=== PATIENT | female | born 1985 | race Caucasian/White ===

== ENCOUNTER 2016-10-23 07:09 | Emergency (ER) | payer BC ==
--- NOTE | 2016-10-23 07:33 | UC ---
Throat Pain/Nasal Deandre HPI - HPI Summary HPI Summary: SORE THROAT X 2 DAYS, + CHILLS, BODY ACHES, NO RUNNY NOSE , OR CONGESTION, NO COUGH , ? FEVER - History of Current Complaint Chief Complaint: UCRespiratory Stated Complaint: SORE THROAT/FEVER/ACHES Time Seen by Provider: 10/23/16 07:25 Hx Obtained From: Patient Hx Last Menstrual Period: 09/16/17 Onset/Duration: Gradual Onset, Lasting Days - 2, Still Present Severity: Moderate Cough: None Associated Signs & Symptoms: Positive: Fever. Negative: Drooling, Sinus Discomfort, Nasal Discharge, Vomiting, Rash - Allergies/Home Medications Allergies/Adverse Reactions: Allergies Allergy/AdvReac Type Severity Reaction Status Date / Time No Known Allergies Allergy Verified 10/23/16 07:21 Home Medications: Home Medications Ibuprofen TAB* [Motrin TAB* 800 MG] 800 mg PO Q6H PRN 10/23/16 [History Confirmed 10/23/16] [id number] [Nyquil Severe Cold/Flu 5-6.25-10-325 mg/15Ml] 1 liq PO BEDTIME 10/23/16 [History Confirmed 10/23/16] PMH/Surg Hx/FS Hx/Imm Hx Cardiovascular History Of: Denies: Cardiac Disorders, Hypertension - Surgical History Surgical History: Yes Surgery Procedure, Year, and Place: Gastric Bypass; 2010 [facility]. [facility] - not cardiac per se, Brain tells heart to stop. - Family History Known Family History: Negative: Diabetes - Social History Alcohol Use: None Substance Use Type: None Smoking Status (MU): Never Smoked Tobacco Review of Systems Constitutional: Chills, Fatigue Skin: Negative Eyes: Negative ENT: Sore Throat Respiratory: Negative Cardiovascular: Negative Gastrointestinal: Negative All Other Systems Reviewed And Are Negative: Yes Physical Exam Triage Information Reviewed: Yes Appearance: Well-Appearing, No Pain Distress, Well-Nourished Vital Signs: Initial Vital Signs Temp 98.4 F 10/23/16 07:15 Pulse 93 10/23/16 07:15 Resp 18 10/23/16 07:15 BP 120/85 10/23/16 07:15 Pulse Ox 99 10/23/16 07:15 Vital Signs Reviewed: Yes Eyes: Positive: Conjunctiva Clear ENT: Positive: Normal ENT inspection, Hearing grossly normal, Pharyngeal erythema, TMs normal. Negative: Nasal congestion, Nasal drainage, TM bulging, TM dull, TM red Neck: Positive: Supple, Enlarged Nodes @ Respiratory: Positive: Chest non-tender, Lungs clear, Normal breath sounds Cardiovascular: Positive: RRR, No Murmur, Pulses Normal, Brisk Capillary Refill Abdominal Exam: Normal Skin Exam: Normal Throat Pain/Nasal Course/Dx - Differential Dx/Diagnosis Provider Diagnoses: STREP PHARYNGITIS Discharge - Discharge Plan Condition: Stable Disposition: HOME Prescriptions: Amoxicillin (*) 875 mg PO BID #20 tab Patient Education Materials: Strep Throat (ED) Referrals: Krystina Devine MD [Primary Care Provider] - If Needed
[2016-10-23 07:36] VITALS: BP 120/85
== END 2016-10-23 07:55 | disposition home or self-care (01) ==
LOC: UCCORT 07:09
DX: J02.0 Streptococcal pharyngitis (principal); Z95.0 Presence of cardiac pacemaker; Z98.84 Bariatric surgery status
CPT/HCPCS: 87651; 99212; G0463

== ENCOUNTER 2017-06-28 20:10 | Emergency (ER) | payer BC ==
[2017-06-28 20:20] VITALS: BP 102/69
--- NOTE | 2017-06-28 20:27 | UC ---
FLU HPI - HPI Summary HPI Summary: Pt presents with c/o sore throat, fever generalized body aches X 3 days. - History of Current Complaint Chief Complaint: UCGeneralIllness Stated Complaint: SORE THROAT/FEVER Time Seen by Provider: 06/28/17 20:11 Hx Obtained From: Patient Hx Last Menstrual Period: 06/22/17 ?: No Onset/Duration: Sudden Onset, Lasting Days Severity Currently: Mild Severity Initially: Mild Associated Signs & Symptoms: Positive: Fever, Sore Throat - Allergy/Home Medications Allergies/Adverse Reactions: Allergies Allergy/AdvReac Type Severity Reaction Status Date / Time No Known Allergies Allergy Verified 06/28/17 20:20 PMH/Surg Hx/FS Hx/Imm Hx Previously Healthy: Yes - Surgical History Surgical History: Yes Surgery Procedure, Year, and Place: Gastric Bypass; 2010 [facility]. [employer] - not cardiac per se, Brain tells heart to stop. - Family History Known Family History: Negative: Diabetes - Social History Occupation: Employed Full-time Lives: With Family Alcohol Use: Occasionally Substance Use Type: None Smoking Status (MU): Never Smoked Tobacco Have You Smoked in the Last Year: No Review of Systems Constitutional: Fever, Fatigue Skin: Negative Eyes: Negative ENT: Sore Throat Respiratory: Negative Cardiovascular: Negative Gastrointestinal: Negative Genitourinary: Negative Motor: Negative Neurovascular: Negative Musculoskeletal: Myalgia Neurological: Negative Psychological: Negative Is Patient Immunocompromised?: No All Other Systems Reviewed And Are Negative: Yes Physical Exam Triage Information Reviewed: Yes Appearance: Well-Appearing Vital Signs: Initial Vital Signs Temp 99 F 06/28/17 20:15 Pulse 78 06/28/17 20:15 Resp 16 06/28/17 20:15 BP 102/69 06/28/17 20:15 Pulse Ox 100 06/28/17 20:15 Eye Exam: Normal ENT Exam: Other ENT: Positive: Tonsillar exudate Dental Exam: Normal Neck exam: Normal Respiratory Exam: Normal Cardiovascular Exam: Normal Musculoskeletal Exam: Normal Neurological Exam: Normal Psychological Exam: Normal Skin Exam: Normal Flu Course/Dx - Course Course Of Treatment: Rapid strep negative - Differential Dx/Diagnosis Differential Diagnosis/HQI/PQRI: Other - viral syndrome, strep throat Provider Diagnoses: viral syndrome. sore throat Discharge - Discharge Plan Condition: Stable Disposition: HOME Patient Education Materials: Pharyngitis (ED), Viral Syndrome (ED) Referrals: No Primary Care Phys,NOPCP [Primary Care Provider] - If Needed
== END 2017-06-28 20:59 | disposition home or self-care (01) ==
LOC: UCCORT 20:10
DX: B34.9 Viral infection, unspecified (principal); J02.9 Acute pharyngitis, unspecified
CPT/HCPCS: 87651; 99211; G0463